=== PATIENT | female | born 1965 | race Two or more races ===

== ENCOUNTER → 2024-09-21 | Outpatient (CLI) | payer BC, SELFPAY ==
--- NOTE | 2024-09-21 10:00 | XR_ITS ---
Examination: Breast ultrasound complete, bilateral Date and time of exam: September 21, 2024 0952 hrs. Indications: Left breast pain beginning 2 years ago Technique: Real-time grayscale ultrasonographic imaging bilateral breasts, including all 4 quadrants as well as nipple retroareolar and axillary regions. Findings: Sonographic images right breast 12:00 nodule lobular margins 7 x 6 mm Sonographic images left breast No cystic or solid mass Impression: BI-RADS Category 3: Probably benign findings. Recommend 1 additional 6 month right breast sonogram follow-up to document stability of 12:00 nodule described above.
--- NOTE | 2024-09-21 11:15 | XR_ITS ---
Examination: Screening digital mammography, bilateral Computer aided detection 3-D breast Tomosynthesis, bilateral Date and time of exam: 09/21/2024, 10:09 AM Comparisons: June 2021 through September 2023 Indications: Screening Technique: Nonmagnified MLO, CC views of the breasts to been obtained, reconstructed from 3-D Tomosynthesis images. R2 computer aided detection program utilized for evaluation of suspicious masses and/or abnormal calcifications. 3-D Tomosynthesis images obtained. Technologist: Findings: There are scattered areas of fibroglandular density. No evidence of abnormal masses or suspicious calcifications. Impression: BI-RADS category 1: Negative findings (within normal) Recommend 1 year follow-up mammogram
== END | disposition home or self-care (01) ==
PROVIDERS: Referring Provider Family Medicine; Visit Provider Family Medicine
DX: Z12.31 Encounter for screening mammogram for malignant neoplasm of breast (principal); R92.313 Mammographic fatty tissue density, bilateral breasts; N63.15 Unspecified lump in the right breast, overlapping quadrants
CPT/HCPCS: 76641; 77063; 77067

== ENCOUNTER 2025-06-30 08:02 | Emergency (ER) | payer BC, SELFPAY ==
--- NOTE | 2025-06-30 08:15 | PD.EDABDPN ---
ED Abdominal Pain RME/HPI General Chief Complaint: Abdominal Pain Stated complaint: Left side abdominal pain X 1 week Time seen by provider: 06/30/25 08:20 Arrival date/time: 06/30/25 08:02 RME / HPI RME / HPI narrative: See [facility] for Dr. Coates's HPI Documentation. Related Data Home Medications ?Medication ?Instructions ?Recorded ?Confirmed atorvastatin 20 mg tablet 20 mg PO QDAY 01/04/23 01/04/23 levothyroxine 50 mcg capsule 50 mcg PO QDAY 01/04/23 01/04/23 losartan 50 mg tablet 50 mg PO QDAY 01/04/23 01/04/23 pantoprazole 20 mg tablet,delayed 20 mg PO QDAY 01/04/23 01/04/23 release Previous Rx's ?Medication ?Instructions ?Recorded famotidine 40 mg tablet 40 mg PO .bedtime #30 tabs 06/30/25 omeprazole 40 mg capsule,delayed 40 mg PO QDAY #30 caps 06/30/25 release Allergies Allergy/AdvReac Type Severity Reaction Status Date / Time No Known Allergies Allergy Verified 06/30/25 08:07 Review of Systems Review of Systems Systems Reviewed: All systems reviewed, normal except as documented Past Medical History Past Medical History CARDIAC: Positive Hypercholesterolemia ENDOCRINE: Positive Hypothyroidism Surgical History SURGICAL: Positive Hysterectomy (w/bladder lift) and Section (x2) ED Exam Narrative Physical exam: See [facility] for Dr. Coates's Physical Exam Documentation. Course Quality Measures none Orders Category Date Time Status CT abdomen pelvis wo con Stat Exams 06/30/25 08:21 Completed US gall bladder Stat Exams 06/30/25 08:21 Completed Amylase Stat Lab 06/30/25 09:05 Completed CBC Stat Lab 06/30/25 09:05 Completed CMP [Comprehensive Metabolic Panel] Stat Lab 06/30/25 09:05 Completed Lipase Stat Lab 06/30/25 09:05 Completed Magnesium Stat Lab 06/30/25 09:05 Completed TSH [Thyroid Stimulating Hormone] Stat Lab 06/30/25 09:05 Completed UA, C/S IF [Urinalysis, C/S if Indicated] Stat Lab 06/30/25 09:15 Completed Vital Signs Vital signs: Vital Signs Temperature 98.0 F 06/30/25 08:21 Pulse Rate 63 06/30/25 08:21 Respiratory Rate 18 06/30/25 08:21 Blood Pressure 161/104 H 06/30/25 08:21 Pulse Oximetry (%) 99 06/30/25 08:21 Oxygen Delivery Method Room Air 06/30/25 08:21 Abdominal Pain MDM MDM Narrative MDM Narrative:: This section includes all my notes and documentations, including HPI, PE, and ED course. Fred Coates MD HPI: 59 y/o female with Hx of HLD and Hypothyroidism with LUQ abdominal pain x 1 week. No vomiting. Eating normally. No fever or chills. No urinary symptoms. No other complaints. ROS: All negative except as documented in HPI. Physical Exam: General: Alert and oriented. No acute distress when remaining still. Eyes: Conjunctivae and lids clear. ENT: No nasal congestion. Neck: Supple. Heart: RRR. Lungs: No respiratory distress. Good air movement. No rhonchi, wheezing, rales. Abdomen: Soft and nontender. Normal bowel sounds. No distension. No rebound or guarding. Back: No CVA tenderness. Skin: Warm and dry. Neuro: Alert and oriented X 3. I reviewed all diagnostic test results: My review of the Gallbladder US report is: NAD. My review of the Abdomen/Pelvis CT report is: NAD. Blood tests and urine tests unremarkable. At this point, diagnoses include: Possible GERD. Treatment here included: None Prescribed famotidine and omeprazole and recommended more outpatient workup. Based on my best medical judgment, made decision no further evaluation or treatment indicated at this time. Patient understands and agrees to the discharge instructions customized and printed, see below. Instrucciones de modesta del Dr. Coates impresas para usted: 1. Despu?s de ayush evaluaci?n exhaustiva, no se determin? la causa exacta de lee dolor. Sin embargo, no hay ninguna emergencia, cheryl apendicitis que requiera cirug?a urgente. 2. Benoit omeprazol por la ma?naeem y famotidina por la noche seg?n sea necesario. Si esto le ayuda o no, ser? informaci?n valiosa para gui m?dicos de cabecera. 3. Consulte con un m?dico particular el 02/07/2025 para ayush revisi?n. Solicite revisar todos los resultados de las pruebas y los informes radiol?gicos oficiales para asegurarse de recibir todo el seguimiento y la monitorizaci?n necesarios. Pida que le vuelvan a matthias la presi?n arterial. Para descartar cualquier afecci?n intraabdominal grave, solicite que le realicen m?s pruebas que no est?n disponibles aqu? en la patrick de emergencias. Por ejemplo, ayush endoscopia digestiva modesta (EGD) o ayush colonoscopia, y ayush derivaci?n a un gastroenter?logo. Si desea encontrar la causa de lee dolor, necesita que le realicen estas pruebas. 4. Busque atenci?n m?dica inmediata si gui s?ntomas empeoran o si tiene alguna otra inquietud. Discharge Instructions from Dr. Coates printed for you: 1. After extensive evaluation, exact cause of your pain was not determined. But there is no emergency, such as appendicitis needing urgent surgery. 2. Take omeprazole in the morning and famotidine in the evening as needed. Whether this helps or not will be valuable information to your private doctors. 3. See a private doctor on 07/02/2025 for recheck. Ask to review all test results and official radiology reports, to make sure you receive all necessary follow-ups and monitoring. Ask to recheck your BP. To make sure there is no serious intra-abdominal condition, ask for help with more investigation not available here in the ER. Such as EGD or scoping the stomach, colonoscopy or scoping the colon, and referral to see inspector watch parts. If you want to find the cause of your pain, you need to get these tests done. 4. Seek immediate medical care with worsening or with any concerns. Fred Coates MD Patient data External records reviewed:: [facility] previous records (Reviewed prior ED records from 09/23/21. Patient was seen for Headache.) Clinical information provided by:: patient Social determinants that could affect healthcare access:: none Patient has the following chronic illnesses:: HLD and Hypothyroidism How is presenting disease/condition affected by chronic disease/condition?: exacerbated by Evaluation data The following diagnostics were reviewed and interpreted by me:: lab results and radiology exam(s) Lab and/or radiology exams considered but not ordered:: None Interpretation Summary: I reviewed all diagnostic test results: My review of the Gallbladder US report is: NAD. My review of the Abdomen/Pelvis CT report is: NAD. Blood tests and urine tests unremarkable. Medications / Prescriptions Medications or Prescriptions considered but not ordered:: None Medication administrations:: None Consultations Consultation(s) initiated? (list below): No Diagnosis Differential diagnosis abdominal pain: acute appendicitis, calculus of kidney, constipation, diverticulitis, endometriosis, gastroenteritis, pancreatitis, small bowel obstruction and other (Biliary colic, GERD, PUD, Gastritis) Most likely diagnosis given after review of the tests above:: Possible GERD Admission Indicated Admission indicated?: not indicated Explain why admission is indicated or not indicated:: With no condition needing emergent intervention, there was no indication for admission. Admission Request Was there a request for admission?: No Disposition Plan Disposition Plan: Discharge Discharge Attestation Discharge Attestation: The patient and all family members were given an opportunity to ask questions and understood the discharge instructions. Discharge instructions specifically effects, indications for sooner follow up or return to the emergency department, and the expected course of current diagnosis. Patient condition: Stable Discharge Plan Plan Patient Disposition: HOME (Self Care) Prescriptions/Referrals Prescriptions/Med Rec: New famotidine 40 mg tablet 40 mg PO .bedtime Qty: 30 0RF omeprazole 40 mg capsule,delayed release(DR/EC) 40 mg PO QDAY Qty: 30 0RF No Action pantoprazole 20 mg tablet,delayed release (DR/EC) 20 mg PO QDAY levothyroxine 50 mcg capsule 50 mcg PO QDAY atorvastatin 20 mg tablet 20 mg PO QDAY losartan 50 mg tablet 50 mg PO QDAY Referrals: Mario (PCP)Rob MD [Primary Care Provider, Family Practice] - In 1 week Problem List Clinical Impression: Abdominal pain Patient/Caregiver Discharge Instructions Discharge Activity: activity as tolerated Education Materials: ED Abdominal Pain Unkn Cause Fem Additional Instructions: Instrucciones de modesta del Dr. Coates impresas para usted: 1. Despu?s de ayush evaluaci?n exhaustiva, no se determin? la causa exacta de lee dolor. Sin embargo, no hay ninguna emergencia, cheryl apendicitis que requiera cirug?a urgente. 2. Benoit omeprazol por la ma?naeem y famotidina por la noche seg?n sea necesario. Si esto le ayuda o no, ser? informaci?n valiosa para gui m?dicos de cabecera. 3. Consulte con un m?dico particular el 02/07/2025 para ayush revisi?n. Solicite revisar todos los resultados de las pruebas y los informes radiol?gicos oficiales para asegurarse de recibir todo el seguimiento y la monitorizaci?n necesarios. Pida que le vuelvan a matthias la presi?n arterial. Para descartar cualquier afecci?n intraabdominal grave, solicite que le realicen m?s pruebas que no est?n disponibles aqu? en la patrick de emergencias. Por ejemplo, ayush endoscopia digestiva modesta (EGD) o ayush colonoscopia, y ayush derivaci?n a un gastroenter?logo. Si desea encontrar la causa de lee dolor, necesita que le realicen estas pruebas. 4. Busque atenci?n m?dica inmediata si gui s?ntomas empeoran o si tiene alguna otra inquietud. Discharge Instructions from Dr. Coates printed for you: 1. After extensive evaluation, exact cause of your pain was not determined. But there is no emergency, such as appendicitis needing urgent surgery. 2. Take omeprazole in the morning and famotidine in the evening as needed. Whether this helps or not will be valuable information to your private doctors. 3. See a private doctor on 07/02/2025 for recheck. Ask to review all test results and official radiology reports, to make sure you receive all necessary follow-ups and monitoring. Ask to recheck your BP. To make sure there is no serious intra-abdominal condition, ask for help with more investigation not available here in the ER. Such as EGD or scoping the stomach, colonoscopy or scoping the colon, and referral to see inspector watch parts. If you want to find the cause of your pain, you need to get these tests done. 4. Seek immediate medical care with worsening or with any concerns. Print Language: Syriac Stand Alone Forms: Nancy Award Info., Patient Portal Info Letter
[2025-06-30 08:21] VITALS: BP 161/104; PULSE 63; RESP 18; TEMP 36.7; O2SAT 99; BMI 26.4
--- NOTE | 2025-06-30 08:21 | XR_ITS ---
Examination: CT abdomen and pelvis without contrast. Coronal 3-D reconstructions. Sagittal 2-D reconstructions. Date and time of exam: June 30, 2025, 0915 hours INDICATIONS: Mid and left-sided abdominal pain bloating beginning 1 week ago CTDI: vol (mGy): 7.25 DLP: (mGycm): 358 Technique: Axial images of the abdomen have been obtained, 3 mm slice thickness Intravenous contrast material has not been administered. Low dose protocols were performed. One or more of the following dose reduction techniques were used; automated exposure control, adjustment of the mA and/or KV according to patient size, use of iterative reconstruction technique. Findings: No focal liver or splenic lesion No gallstones No pancreatic or adrenal mass 2 mm lower pole left renal calculus, no hydronephrosis or ureteral calculi Aorta normal size Normal appendix No bowel obstruction or diverticulitis Intact urinary bladder Absent uterus Prominent osteopenia IMPRESSION: 2 mm lower pole nonobstructing left renal calculus, no hydronephrosis or ureteral calculi Normal appendix No bowel obstruction diverticulitis or free air
--- NOTE | 2025-06-30 08:21 | XR_ITS ---
Examination: Abdomen sonogram, Limited Date and time of exam: June 30, 2025, 0828 hours INDICATIONS: Abdominal pain and tenderness this week Technique: Real-time salcido scale transabdominal sonographic images of the upper abdomen obtained. Findings: Normal gallbladder Normal common bile duct 0.3 cm Pancreatic head 2.1 cm Liver 11.7 cm fatty infiltration Normal hepatopetal portal venous flow Patent IVC IMPRESSION: Normal gallbladder Normal common bile duct
[2025-06-30 09:15] LABS: Basophils # (Auto) 0.0 Thou/mm3 (0.0-0.2); Basophils % (Auto) 1 % (0-2.5); Eosinophils # (Auto) 0.2 Thou/mm3 (0.0-0.5); Eosinophils % (Auto) 3 % (0-10); Hematocrit 41.8 % (36.0-46.0); Hemoglobin 14.2 g/dL (12.0-16.0); Immature Granulocytes Auto 0.01 Thou/mm3 (0.00-0.00); Lymphocytes # (Auto) 2.5 Thou/mm3 (1.0-4.8); Lymphocytes % (Auto) 40 % (10-50); Mean Corpuscular HGB Conc 34.0 g/dl (31.0-37.0); Mean Corpuscular Hemoglobin 31.2 pg (25.0-35.0); Mean Corpuscular Volume 92 fL (80-100); Monocytes # (Auto) 0.5 Thou/mm3 (0.0-0.8); Monocytes % (Auto) 8 % (0-12); Neutrophils # (Auto) 3.0 Thou/mm3 (1.8-7.7); Neutrophils % (Auto) 49 % (37-80); Nucleated Red Blood Cell # 0.00 Thou/mm3 (0.00-0.00); Nucleated Red Blood Cell % 0 /100 WBC (0); Platelet Count 227 Thou/mm3 (140-440); RDW Standard Deviation 39.9 fL (36.4-46.3); Red Blood Count 4.55 Miln/mm3 (4.00-5.20); White Blood Count 6.1 Thou/mm3 (3.6-11.0)
[2025-06-30 09:37] LABS: Collection Type, Urine Clean Catch; Squamous Epithelial Cell,Urine 0 /hpf (0-5)
[2025-06-30 09:49] LABS: Bilirubin,Urine Negative (Negative); Blood,Urine Negative (Negative); Clarity,Urine Clear (Clear/Hazy); Color,Urine Colorless (Lt Yel-Yel); Culture Indicated,Urine Not Indicated; Glucose, Urine Negative (Negative); Ketones,Urine Negative (Negative); Leukocyte Esterase,Urine Negative (Negative); Nitrite,Urine Negative (Negative); PH,Urine 7.5 (5.0-7.0); Protein,Urine Negative (Neg - Trace); RBC,Urine < 1 /hpf (0-3); Specific Gravity,Urine 1.009 (1.001-1.035); Urobilinogen,Urine Negative mg/dL (0.0-1.0); WBC,Urine < 1 /hpf (0-5)
[2025-06-30 09:55] LABS: Alanine Aminotransferase 23 U/L (10-49); Albumin, Serum 5.1 gm/dL (3.4-4.8); Albumin/Globulin Ratio 2.1 (1.2-2.2); Alkaline Phosphatase 90 U/L (46-116); Amylase 95 U/L (30-118); Anion Gap 8 (7-16); Aspartate Amino Transferase 22 U/L (0-34); BUN/Creatinine Ratio 10 Ratio (12-20); Bilirubin,Total 0.7 mg/dL (0.3-1.2); Blood Urea Nitrogen 8 mg/dL (9-23); Calcium 9.6 mg/dL (8.3-10.6); Calcium (Corrected) 9.6 mg/dL (8.5-10.1); Carbon Dioxide 30.2 mMol/L (20.0-31.0); Chloride 107 mMol/L (98-107); Creatinine (Component) 0.8 mg/dL (0.6-1.3); Estimated Creatinine Clearance 61.1 mL/min (>60); Globulin 2.4 gm/dL (2.3-3.5); Glucose 137 mg/dL (74-106); Lipase 51 U/L (12-53); Magnesium 2.2 mg/dL (1.6-2.6); Osmolality,Calculated 289 (275-295); Potassium 4.0 mMol/L (3.4-5.1); Sodium 145 mMol/L (136-145); Total Protein 7.5 gm/dL (5.7-8.2); eGFR > 60 See Note
[2025-06-30 09:59] LABS: Thyroid Stimulating Hormone 2.13 uIU/mL (0.55-4.78)
== END 2025-06-30 17:27 | disposition home or self-care (01) ==
PROVIDERS: Emergency Provider Emergency Medicine; PCP Family Medicine
DX: R10.9 Unspecified abdominal pain (principal)
CPT/HCPCS: 36415; 74176; 76705; 80053; 81001; 82150; 83690; 83735; 84443; 85025; 99283